=== PATIENT | male | born 1960 ===

== ENCOUNTER 2021-11-10 08:32 | Day surgery (SDC) | payer OTHER ==
[~2021-11-10 08:32] MED LIST: FOLIC ACID PO
[2021-11-10] MEDS ORDERED: PERCOCET 5-3251 EACH PO (19:54)
== END 2021-11-10 22:20 | disposition home or self-care (01) ==
LOC: CIR.AMB 08:32
PROVIDERS: ATTEND Surgery
DX: N52.9 Male erectile dysfunction, unspecified (principal); N48.6 Induration penis plastica; G47.33 Obstructive sleep apnea (adult) (pediatric)

== ENCOUNTER 2024-05-01 11:16 | Outpatient (CLI) | payer OTHER ==
[~2024-05-01 11:16] MED LIST changes: +PERCOCET 5-3251 EACH PO
== END 2024-05-01 11:24 | disposition home or self-care (01) ==
LOC: RAD 11:16
PROVIDERS: ATTEND Neurological Surgery
DX: M46.24 Osteomyelitis of vertebra, thoracic region (principal); Z98.890 Other specified postprocedural states; M62.838 Other muscle spasm

== ENCOUNTER 2025-03-06 08:36 | Outpatient (CLI) | payer OTHER | END 2025-03-06 08:38 | disposition home or self-care (01) | LOC: RAD 08:36 | PROVIDERS: ATTEND Neurological Surgery | DX: M46.24 Osteomyelitis of vertebra, thoracic region (principal); M41.84 Other forms of scoliosis, thoracic region; Z98.890 Other specified postprocedural states; M43.24 Fusion of spine, thoracic region; M62.838 Other muscle spasm; I67.9 Cerebrovascular disease, unspecified ==